=== PATIENT | male | born 1985 | race African-American/Black ===

== ENCOUNTER 2019-12-13 15:06 | Emergency (ER) | payer MEDICAID ==
[~2019-12-13] VITALS: Ht 180.3 cm; Wt 95.5 kg
[2019-12-13 15:11] VITALS: Ht 180.3 cm; Wt 95.5 kg
[2019-12-13] MEDS ORDERED: ULTRAM50 MG PO (16:23)
[2019-12-13 16:35] LABS: BASOPHILS 0.5 % (0-2); EOSINOPHILS 4.3 % (0-7); HEMATOCRIT 44.6 % (42.0-54.0); IMMATURE GRANULOCYTES 0.6 % (0-5); LYMPHOCYTES 25.9 % (15-50); MCH 30.4 pg (26.0-34.0); MCHC 33.6 g/dL (31.0-37.0); MCV 90.5 fL (80.0-100.0); MONOCYTES 7.2 % (2-11); NEUTROPHILS 61.5 % (40-80); PLATELET COUNT 321 10x3/uL (130-400); RBC 4.93 10x6/uL (4.20-6.10); RDW 13.6 % (11.5-14.5); WBC 8.2 10x3/uL (4.8-10.8)
[2019-12-13 17:01] VITALS: BP 131/75
== END 2019-12-13 17:02 | disposition home or self-care (01) ==
LOC: D.ER 15:06
PROVIDERS: Emergency Medicine
DX: S01.302A Unspecified open wound of left ear, initial encounter (principal); S41.102A Unspecified open wound of left upper arm, initial encounter; W34.00XA Accidental discharge from unspecified firearms or gun, initial encounter; Y93.9 Activity, unspecified; Y92.9 Unspecified place or not applicable; R11.0 Nausea; R42 Dizziness and giddiness; R06.02 Shortness of breath; J45.909 Unspecified asthma, uncomplicated; Z72.0 Tobacco use